=== PATIENT | female | born 1995 | race Caucasian/White ===

== ENCOUNTER 2018-11-28 16:40 | Emergency (ER) | payer OTHER ==
[~2018-11-28] VITALS: Ht 157.5 cm; Wt 72.6 kg
[2018-11-28 17:15] LABS: CHLORIDE SERUM 107 mmol/L (98-107); CREATININE SERUM 0.7 mg/dL (0.6-1.0); GFR1 > 60 mL/min; GLUCOSE SERUM 70 mg/dL (74-106); POTASSIUM SERUM 3.2 mmol/L (3.5-5.1); SODIUM SERUM 146 mmol/L (136-145)
[2018-11-28 17:20] LABS: ALBUMIN 4.1 g/dL (3.4-5.0); ALKALINE PHOSPHATASE 94 U/L (46-116); ALT/SGPT 10 U/L (14-59); AST/SGOT 8 U/L (15-37); BILIRUBIN TOTAL 0.65 mg/dL (0.20-1.00)
[2018-11-28 17:22] LABS: BASOPHIL % 0.4 % (0-2); PLATELET COUNT 225 x10^3mcL (130-400); RED CELL DISTRIBUTION WIDTH 13.3 % (11.5-14.5)
[2018-11-28 17:23] LABS: TOTAL PROTEIN, SERUM 8.9 g/dL (6.4-8.2)
[2018-11-28 17:26] LABS: FREE T4 1.16 ng/dL (0.76-1.46); T4(THYROXINE) 8.7 ug/dL (4.7-13.3)
[2018-11-28 17:45] LABS: T3 TOTAL 0.87 ng/mL
[2018-11-28 18:02] LABS: AMPHETAMINE QUAL UR NONE DETECTED (See below)
[2018-11-29 00:31] VITALS: BP 91/53
== END 2018-11-29 00:56 | disposition home or self-care (01) ==
LOC: ED 16:40
PROVIDERS: Emergency Medicine
DX: T39.011A Poisoning by aspirin, accidental (unintentional), initial encounter (principal); F32.9 Major depressive disorder, single episode, unspecified; Y92.89 Other specified places as the place of occurrence of the external cause
CPT/HCPCS: 82962; 84439; C9113; G0480; J0696; J2405; J3490; J7030